=== PATIENT | male | born 1965 | race African-American/Black ===

== ENCOUNTER 2021-07-18 22:20 | Inpatient (IN) | payer OTHER ==
[~2021-07-18] VITALS: Ht 177.8 cm; Wt 102.7 kg
--- NOTE | 2021-07-18 22:43 | NUR ---
pt walked into the er c/o numbness to his right arm.
--- NOTE | 2021-07-18 23:40 | NUR ---
Dr. Suero at bedside for MSE.
[2021-07-18] MEDS ORDERED: CLONIDINE HCL 0.1 MG TABLET PO ONE (23:45)
[2021-07-18] MEDS ORDERED: CLONIDINE HCL 0.1 MG TABLET ONE (23:56)
[2021-07-19 00:16] LABS: CARBON DIOXIDE 27 mmol/L (21-32); CHLORIDE 104 mmol/L (98-107); CREATININE 1.3 mg/dL (0.6-1.3); GLUCOSE 188 mg/dL (74-106); POTASSIUM 3.8 mmol/L (3.5-5.1); UREA NITROGEN, BLOOD 15 mg/dL (7-18)
[2021-07-19 00:20] LABS: ALANINE AMINOTRANSFERASE 36 U/L (16-63); ALKALINE PHOSPHATASE 59 U/L (50-136); ASPARTATE AMINOTRANSFERASE 15 U/L (15-37); BILIRUBIN,DIRECT 0.1 mg/dL (0.0-0.2); BILIRUBIN,TOTAL 0.4 mg/dL (0.2-1.0); TOTAL PROTEIN, SERUM 7.6 g/dL (6.4-8.2)
--- NOTE | 2021-07-19 00:21 | NUR ---
pt went to cat scan via w/c has returned.
[2021-07-19] MEDS ORDERED: METOPROLOL TARTRATE 50 MG TABLET PO ONE (00:30)
[2021-07-19] MEDS ORDERED: NITROGLYCERIN OINT 1 GM PACKET TP ONE ×2 (00:30→00:38)
[2021-07-19] MEDS ORDERED: ASPIRIN 81 MG TAB.CHEW PO ONE (00:30)
[2021-07-19 00:35] LABS: HEMATOCRIT 42.7 % (36.7-47.1); MEAN CORPUSCULAR HEMOGLOBIN 29.2 uug (23.8-33.4); MEAN CORPUSCULAR VOLUME 86.9 fL (73.0-96.2); PLATELET COUNT (AUTO) 284 K/uL (152-348)
[2021-07-19] MEDS ORDERED: ASPIRIN 81 MG TAB.CHEW ONE (00:38)
[2021-07-19] MEDS ORDERED: METOPROLOL TARTRATE 50 MG TABLET ONE (00:39)
[2021-07-19] MEDS ORDERED: CHOLECALCIFEROL 1,000 UNIT TABLET ONE (00:46)
[2021-07-19] MEDS ORDERED: MAGNESIUM SULFATE/D5W 200 ML ONE (00:47)
[2021-07-19] MEDS: CHOLECALCIFEROL 1,000 UNIT TABLET PO SCH ×2 (00:55→08:48)
[2021-07-19] MEDS: MAGNESIUM SULFATE/D5W 100 ML IV SCH ×2 (00:55→01:24)
--- NOTE | 2021-07-19 01:51 | NUR ---
call to [facility] professor doctor Dr. Torres.
--- NOTE | 2021-07-19 01:56 | NUR ---
Dr. Torres called back and is speaking to Dr. Suero.
[2021-07-19] MEDS ORDERED: INSU100V7 SQ (02:00)
[2021-07-19] MEDS ORDERED: INSULIN REGULAR, HUMAN 300 UNITS/3 ML VIAL SQ PRN (02:00)
[2021-07-19] MEDS ORDERED: DEXTROSE 50% 50 ML DISP.SYRIN IV PRN (02:00)
[2021-07-19] MEDS ORDERED: LISI20TA30 PO (02:00)
[2021-07-19] MEDS ORDERED: hydrALAZINE HCL 20 MG/1 ML VIAL IV PRN (02:00)
[2021-07-19] MEDS ORDERED: ONDANSETRON 4 MG/2 ML VIAL IV PRN (02:00)
[2021-07-19] MEDS ORDERED: MORPHINE SULFATE 2 MG/1 ML DISP.SYRIN IV PRN (02:00)
[2021-07-19] MEDS ORDERED: ENOXAPARIN SODIUM 100 MG/ML DISP.SYRIN SQ ONE ×2 (02:00→02:09)
--- NOTE | 2021-07-19 02:29 | NUR ---
report to Terese beatty to go to room 305.
--- NOTE | 2021-07-19 03:02 | NUR ---
pt transported to room 305 via [facility] with all belongings, STAN Gudino at bedside to receive the pt.
--- NOTE | 2021-07-19 03:03 | NUR ---
Received pt from ER via [facility]. Under the care of Dr. Alexis Garcia . Dx: Nstemi . Pt in no acute distress. Pt awake, alert and oriented x4. Admission process and care plan initiated, Belonging list done. care home assessment done. Safety and comfort provided. Will continue to monitor.
--- NOTE | 2021-07-19 03:23 | NUR ---
Gilberto from lab reported critical lab of troponin 84. Notify Dr. Pepe Torres regarding the result. No new orders as per
[2021-07-19 03:33] VITALS: BP 143/77
--- NOTE | 2021-07-19 06:06 | NUR ---
Pt in no acute distress. Iv intact. Pt on Sinus rhythm. Prescribed medication given and pt tolerated it well. Iv intact. Safety and comfort provided. All needs are met. Will endorse to incoming nurse for continuity of care.
[2021-07-19] MEDS: ACETAMINOPHEN 325 MG TABLET PO PRN ×2 (06:23→23:26)
[2021-07-19] MEDS: BLOOD SUGAR DIAGNOSTIC 1 EACH STRIP VI SCH ×4 (06:36→20:42)
--- NOTE | 2021-07-19 06:40 | NUR ---
Tylenol 650 mg prn given to pt for headache. Pt tolerated it well. Blood sugar is 167.Pt stable. Will endorse to incoming nurse.
[2021-07-19] MEDS: ASPIRIN EC 81 MG TABLET.DR PO SCH (08:48)
[2021-07-19] MEDS: LISINOPRIL 20 MG TABLET PO SCH (08:54)
[2021-07-19] MEDS: INSULIN REGULAR, HUMAN 300 UNIT/3 ML VIAL SQ PRN ×2 (08:57→11:23)
[2021-07-19] MEDS: ENOXAPARIN SODIUM 40 MG/0.4 ML DISP.SYRIN SQ SCH (08:57)
--- NOTE | 2021-07-19 09:16 | NUR ---
Arrived to patients room resting comfortably in bed with no immediate signs of distress or discomfort. Patient noted with a critical lab value of Troponin at 80. Patient seen by vice president planning. Patient to be seem by Neurologist. Patient's IV site patent and intact. Bed left in lowest position with call light within reach. Will monitor patient throughout shift.
[2021-07-19] MEDS: METOPROLOL SUCCINATE XL 25 MG TAB.SR.24H PO SCH (09:40)
[2021-07-19 11:58] VITALS: BP 141/76
[2021-07-19 15:44] VITALS: BP 154/83
--- NOTE | 2021-07-19 18:38 | NUR ---
Patient tolerated care well today with no signs of distress or discomfort during shift. Patient anticipating to go home, but reminded that patient must be cleared by associated doctors providing his care. Patient resting comfortably in bed at lowest position. IV site intact and patent. Comfort measures provided. Will endorse information to PM nurse.
--- NOTE | 2021-07-19 19:30 | NUR ---
RECEIVED PT AWAKE, ALERT AND ORIENTEDX4. PY IN NO ACUTE DISTRESS. IV INTACT.PT ON SINUS RHYTHM. SAFETY AND COMFORT PROVIDED. WILL CONTINUE TO MONITOR.
[2021-07-19 20:00] VITALS: BP_SYST 148; BP_SYST 151; BP_DIAS 76; BP_DIAS 78
[2021-07-19] MEDS ORDERED: ATORVASTATIN 40 MG TABLET PO SCH (21:00)
[2021-07-19] MEDS ORDERED: INSULIN GLARGINE,HUM 300 UNITS/3 ML CARTRIDGE SQ SCH (21:00)
[2021-07-20] VITALS: BP 148/78
[2021-07-20 04:00] VITALS: BP 137/68
--- NOTE | 2021-07-20 06:36 | NUR ---
Pt in no acute distress. Pt IV intact.Pt on sinus rhythm.Prescribed medication given and pt tolerated it well. Safety and comfort provided. Pt blood sugar was 233 and 179. All needs are met. PT vital signs within normal limit. Will endorse to incoming nurse for continuity of care.
[2021-07-20] MEDS: BLOOD SUGAR DIAGNOSTIC 1 EACH STRIP VI SCH ×3 (06:39→16:20)
[2021-07-20 06:57] LABS: HEMATOCRIT 40.3 % (36.7-47.1); MEAN CORPUSCULAR HEMOGLOBIN 29.7 uug (23.8-33.4); MEAN CORPUSCULAR VOLUME 86.8 fL (73.0-96.2); PLATELET COUNT (AUTO) 255 K/uL (152-348)
[2021-07-20 07:06] LABS: BILIRUBIN,TOTAL 0.4 mg/dL (0.2-1.0); PHOSPHOROUS 3.5 mg/dL (2.5-4.9); POTASSIUM 3.8 mmol/L (3.5-5.1); TOTAL PROTEIN, SERUM 6.6 g/dL (6.4-8.2)
--- NOTE | 2021-07-20 07:43 | NUR ---
Received patient report from PM nurse. Arrived to patient sleeping in bed comfortably. Bed left in lowest position with call light within reach. Will monitor patient throughout shift.
[2021-07-20] MEDS: CHOLECALCIFEROL 1,000 UNIT TABLET PO SCH (08:11)
[2021-07-20] MEDS: ASPIRIN EC 81 MG TABLET.DR PO SCH (08:11)
[2021-07-20] MEDS: LISINOPRIL 20 MG TABLET PO SCH (08:11)
[2021-07-20] MEDS: METOPROLOL SUCCINATE XL 25 MG TAB.SR.24H PO SCH (08:17)
[2021-07-20] MEDS: ENOXAPARIN SODIUM 40 MG/0.4 ML DISP.SYRIN SQ SCH (08:20)
[2021-07-20] MEDS: INSULIN REGULAR, HUMAN 300 UNIT/3 ML VIAL SQ PRN ×2 (08:20→11:11)
--- NOTE | 2021-07-20 09:10 | NUR ---
Patient to receive MRI of Brain and Neck w/out contrast. MRI questionnaire obtained and signed by patient.
--- NOTE | 2021-07-20 10:37 | NUR ---
Patient to have MRI of Brain and Spine at 1600. MRI Checklist complete. Patient notified.
[2021-07-20 11:02] VITALS: BP 110/62
--- NOTE | 2021-07-20 11:38 | NUR ---
Patient to be picked up by [facility] at 1300.
--- NOTE | 2021-07-20 13:30 | NUR ---
Patient picked up by [facility] for MRI at [facility]
--- NOTE | 2021-07-20 15:39 | NUR ---
Patient back in unit from [place] for MRI.
--- NOTE | 2021-07-20 17:54 | NUR ---
Patient cleared by Doctor after MRI results. Patient discharged from unit. IV site removed. ID badge removed. Discharge education provided.
== END 2021-07-20 17:50 | disposition home or self-care (01) | DRG 305 ==
LOC: ER 22:31 → TELE3 07-19 02:00
PROVIDERS: ADMIT Nurse Practitioner Acute Care; ATTEND Nurse Practitioner Acute Care
DX: I16.0 Hypertensive urgency (principal); E11.9 Type 2 diabetes mellitus without complications; Z79.4 Long term (current) use of insulin; E66.9 Obesity, unspecified; E78.5 Hyperlipidemia, unspecified; Z68.32 Body mass index [BMI] 32.0-32.9, adult; R20.2 Paresthesia of skin; R93.1 Abnormal findings on diagnostic imaging of heart and coronary circulation
CPT/HCPCS: 36415; 70450; 70551; 71045; 72141; 83735; 84100; 84484; 85025; 85651; 85730; 93005; 93307; A4663; G0378; J1650; J1815; J3475